=== PATIENT | male | born 1955 | race Caucasian/White ===

== ENCOUNTER 2023-02-24 18:08 | Inpatient (IN) | payer OTHER ==
[~2023-02-24] VITALS: Ht 180.3 cm; Wt 74.3 kg
[2023-02-24 19:07] LABS: BASO # 0.1 10^3/uL (0.0-0.2); BASO % 0.8 % (0.0-1.0); EOS # 0.2 10^3/uL (0.0-0.5); EOS % 1.9 % (0.0-3.0); HEMATOCRIT 42.3 % (42.0-52.0); HEMOGLOBIN 14.6 g/dl (13.5-17.5); LYMPH # 1.1 10^3/uL (1.5-5.0); LYMPH % 9.4 % (24.0-44.0); MEAN CORPUSCULAR HEMOGLOBIN 32.1 pg (27.0-33.0); MEAN CORPUSCULAR HGB CONC 34.5 g/dl (32.0-36.5); MONO # 0.8 10^3/uL (0.0-0.8); MONO % 6.9 % (2.0-8.0); NEUTROPHILS # 8.9 10^3/uL (1.5-8.5); NEUTROPHILS % 80.2 % (36.0-66.0); PLATELET COUNT, AUTOMATED 245 10^3/uL (150-450); RED BLOOD COUNT 4.55 10^6/uL (4.30-6.10); WHITE BLOOD COUNT 11.1 10^3/uL (4.0-10.0)
[2023-02-24 19:22] LABS: ERYTHROCYTE SEDIMENTATION RATE 28 mm/hr (0-20)
[2023-02-24 19:37] LABS: C REACTIVE PROTEIN QUANTITATIV 0.9 MG/DL (<1.0)
[2023-02-24 19:49] LABS: CALCIUM LEVEL 8.4 MG/DL (8.3-10.6); CREATININE FOR GFR 1.71 MG/DL (0.70-1.30); POTASSIUM SERUM 4.1 MMOL/L (3.5-5.1)
[2023-02-24] MEDS ORDERED: HumuLIN R (REGULAR) INSULIN (NovoLIN R) **100U/ML** PER UNIT IV ONE (19:55)
[2023-02-24] MEDS ORDERED: PIPERACILLIN/TAZOBACTAM SOD 4.5 GM in D5W MINI-BAG PLUS 50 ML IV ONE (19:55)
[2023-02-24] MEDS ORDERED: TRUL10IN SC (21:12)
[2023-02-24] MEDS ORDERED: PANT40TA29 PO (21:16)
[2023-02-24] MEDS ORDERED: TRIA37.5 PO (21:16)
[2023-02-24] MEDS ORDERED: JARD1TAB PO (21:16)
[2023-02-24] MEDS ORDERED: CEPH500C PO (21:16)
[2023-02-24] MEDS ORDERED: ATOR40TA75 PO (21:16)
[2023-02-24] MEDS ORDERED: BISO5TAB14 PO (21:16)
[2023-02-24] MEDS ORDERED: METF-838 PO (21:16)
[2023-02-24] MEDS ORDERED: HOME MED LIST COMPLETE! XX SCH (21:20)
[2023-02-24] MEDS ORDERED: VANCOMYCIN HCL 1,000 MG, VIAL MATE ADAPTER 1 EACH in NS 250 ML IV ONE (21:20)
[2023-02-24 21:49] LABS: RSV AMPLIFICATION NEGATIVE (NEGATIVE)
[2023-02-24 23:50] VITALS: BP 127/64
[2023-02-25] MEDS ORDERED: HYDROMORPHONE HCL 0.5 MG/ 0.5 ML SYRINGE IV PRN (00:15)
[2023-02-25] MEDS ORDERED: NS 1,000 ML IV ONE (00:15)
[2023-02-25] MEDS ORDERED: GLUCOSE 4GM CHEW TABLET PO PRN (00:15)
[2023-02-25] MEDS ORDERED: ACETAMINOPHEN TAB 650MG DOSE (2X325MG) PO PRN (00:15)
[2023-02-25] MEDS ORDERED: DEXTROSE 50% 50ML SYRINGE IV PRN (00:15)
[2023-02-25] MEDS ORDERED: GLUCAGON INJ 1MG VIAL SC PRN (00:15)
[2023-02-25] MEDS: LEVEMIR (INSULIN DETEMIR) 1 UNITS/0.01ML SC SCH ×3 (00:54→20:12)
[2023-02-25] MEDS ORDERED: NS 1,000 ML IV SCH (01:00)
[2023-02-25] MEDS: VANCOMYCIN HCL 1,000 MG, VIAL MATE ADAPTER 1 EACH in NS 250 ML IV SCH ×2 (06:01→23:57)
[2023-02-25 06:07] VITALS: BP 141/71
[2023-02-25 06:36] LABS: CHOLESTEROL LEVEL 217 MG/DL (<200); CHOLESTEROL RISK RATIO 6.53 (<5); HDL CHOLESTEROL 33.2 MG/DL (>40); NON-HDL-C 183.8 MG/DL; TRIGLYCERIDES LEVEL 855 MG/DL (<150)
[2023-02-25] MEDS: bisoproloL fumarate 5 MG TAB PO SCH (08:00)
[2023-02-25] MEDS: PANTOPRAZOLE 40MG TAB (PROTONIX) PO SCH (08:00)
[2023-02-25] MEDS: INSULIN LISPRO (NovoLOG) PER UNIT SC SCH ×4 (08:00→20:12)
[2023-02-25 09:47] LABS: BLOOD UREA NITROGEN 35 MG/DL (9-23); CALCIUM LEVEL 8.2 MG/DL (8.3-10.6); CARBON DIOXIDE LEVEL 27 MMOL/L (20-31); CHLORIDE LEVEL 103 MMOL/L (98-107); CREATININE FOR GFR 1.62 MG/DL (0.70-1.30); GLOMERULAR FILTRATION RATE 45.8 (>49); GLUCOSE, FASTING 241 MG/DL (74-106); POTASSIUM SERUM 3.7 MMOL/L (3.5-5.1); SODIUM LEVEL 137 MMOL/L (136-145)
[2023-02-25] MEDS: NICOTINE 7 MG/24 HR TRANSDERMAL TD SCH (12:52)
[2023-02-25 14:00] VITALS: BP 127/64
[2023-02-25] MEDS: DYAZIDE 37.5/25 CAP (TRIAM/HCTZ) PO SCH (14:09)
[2023-02-25 19:47] LABS: HEMOGLOBIN A1c > 14.0 % (4.0-6.0)
[2023-02-25 20:00] VITALS: BP 128/65
[2023-02-25] MEDS: ATORVASTATIN 20 MG TAB PO SCH (20:11)
[2023-02-25] MEDS ORDERED: HEPARIN SOD (PORCINE) 5000UNITS/ML 1ML VIAL/SYRINGE SC SCH (22:00)
[2023-02-26 06:00] VITALS: BP 129/67
[2023-02-26 07:15] LABS: ALBUMIN 2.9 G/DL (3.2-5.2); BILIRUBIN,TOTAL 0.5 MG/DL (0.3-1.2); CREATININE FOR GFR 1.43 MG/DL (0.70-1.30); GLOMERULAR FILTRATION RATE 52.8 (>49); POTASSIUM SERUM 3.8 MMOL/L (3.5-5.1)
[2023-02-26] MEDS: DYAZIDE 37.5/25 CAP (TRIAM/HCTZ) PO SCH (08:32)
[2023-02-26] MEDS: PANTOPRAZOLE 40MG TAB (PROTONIX) PO SCH (08:32)
[2023-02-26] MEDS: LEVEMIR (INSULIN DETEMIR) 1 UNITS/0.01ML SC SCH ×2 (08:32→21:28)
[2023-02-26] MEDS: INSULIN LISPRO (NovoLOG) PER UNIT SC SCH ×4 (08:33→21:29)
[2023-02-26] MEDS: NICOTINE 7 MG/24 HR TRANSDERMAL TD SCH (08:33)
[2023-02-26] MEDS: bisoproloL fumarate 5 MG TAB PO SCH (08:34)
[2023-02-26 08:35] LABS: C REACTIVE PROTEIN QUANTITATIV 1.1 MG/DL (<1.0)
[2023-02-26 08:37] LABS: BASO # 0.1 10^3/uL (0.0-0.2); BASO % 0.9 % (0.0-1.0); EOS # 0.6 10^3/uL (0.0-0.5); EOS % 5.8 % (0.0-3.0); HEMOGLOBIN 14.8 g/dl (13.5-17.5); LYMPH # 1.7 10^3/uL (1.5-5.0); LYMPH % 17.4 % (24.0-44.0); MEAN CORPUSCULAR HEMOGLOBIN 31.9 pg (27.0-33.0); MEAN CORPUSCULAR HGB CONC 33.6 g/dl (32.0-36.5); MEAN CORPUSCULAR VOLUME 94.8 fl (80.0-96.0); MONO # 0.8 10^3/uL (0.0-0.8); MONO % 7.9 % (2.0-8.0); NEUTROPHILS # 6.4 10^3/uL (1.5-8.5); PLATELET COUNT, AUTOMATED 214 10^3/uL (150-450); RED BLOOD COUNT 4.64 10^6/uL (4.30-6.10); WHITE BLOOD COUNT 9.5 10^3/uL (4.0-10.0)
[2023-02-26 08:46] LABS: ERYTHROCYTE SEDIMENTATION RATE 42 mm/hr (0-20)
[2023-02-26] MEDS: ceFAZolin SOD 1 GM in D5W MINI-BAG PLUS 50 ML IV SCH ×2 (10:32→17:06)
[2023-02-26 14:00] VITALS: BP 131/68
[2023-02-26] MEDS: NS 1,000 ML IV SCH (17:06)
[2023-02-26 20:00] VITALS: BP 136/78
[2023-02-26] MEDS: ATORVASTATIN 20 MG TAB PO SCH (21:29)
[2023-02-27] MEDS: ceFAZolin SOD 1 GM in D5W MINI-BAG PLUS 50 ML IV SCH ×3 (01:39→17:44)
[2023-02-27 06:11] LABS: BASO # 0.1 10^3/uL (0.0-0.2); BASO % 1.2 % (0.0-1.0); EOS # 0.6 10^3/uL (0.0-0.5); EOS % 6.8 % (0.0-3.0); HEMATOCRIT 42.9 % (42.0-52.0); HEMOGLOBIN 14.3 g/dl (13.5-17.5); LYMPH # 1.5 10^3/uL (1.5-5.0); LYMPH % 18.3 % (24.0-44.0); MEAN CORPUSCULAR HEMOGLOBIN 31.6 pg (27.0-33.0); MEAN CORPUSCULAR HGB CONC 33.3 g/dl (32.0-36.5); MEAN CORPUSCULAR VOLUME 94.9 fl (80.0-96.0); MONO # 0.8 10^3/uL (0.0-0.8); MONO % 9.5 % (2.0-8.0); NEUTROPHILS # 5.2 10^3/uL (1.5-8.5); NEUTROPHILS % 62.8 % (36.0-66.0); PLATELET COUNT, AUTOMATED 200 10^3/uL (150-450); RED BLOOD COUNT 4.52 10^6/uL (4.30-6.10); WHITE BLOOD COUNT 8.3 10^3/uL (4.0-10.0)
[2023-02-27 06:45] VITALS: BP 132/78
[2023-02-27 06:50] LABS: CALCIUM LEVEL 8.9 MG/DL (8.3-10.6); CREATININE FOR GFR 1.33 MG/DL (0.70-1.30); GLOMERULAR FILTRATION RATE 57.4 (>49)
[2023-02-27] MEDS: DYAZIDE 37.5/25 CAP (TRIAM/HCTZ) PO SCH (08:12)
[2023-02-27] MEDS: PANTOPRAZOLE 40MG TAB (PROTONIX) PO SCH (08:13)
[2023-02-27] MEDS: LEVEMIR (INSULIN DETEMIR) 1 UNITS/0.01ML SC SCH ×2 (08:13→21:54)
[2023-02-27] MEDS: NICOTINE 7 MG/24 HR TRANSDERMAL TD SCH (08:14)
[2023-02-27] MEDS: INSULIN LISPRO (NovoLOG) PER UNIT SC SCH ×4 (08:14→21:00)
[2023-02-27] MEDS: bisoproloL fumarate 5 MG TAB PO SCH (08:15)
[2023-02-27] MEDS ORDERED: LEVEMIR (INSULIN DETEMIR) 1 UNITS/0.01ML SC ONE (12:00)
[2023-02-27] MEDS: ASPIRIN 81MG ENTERIC TABLET PO SCH (13:47)
[2023-02-27 14:00] VITALS: BP 133/77
[2023-02-27] MEDS: NS 1,000 ML IV SCH (14:52)
[2023-02-27 21:00] VITALS: BP 133/77
[2023-02-27] MEDS: ATORVASTATIN 20 MG TAB PO SCH (21:54)
[2023-02-28] MEDS: ceFAZolin SOD 1 GM in D5W MINI-BAG PLUS 50 ML IV SCH ×3 (02:15→17:57)
[2023-02-28 05:25] VITALS: BP 134/74
[2023-02-28 06:00] LABS: BASO # 0.1 10^3/uL (0.0-0.2); BASO % 1.3 % (0.0-1.0); EOS # 0.7 10^3/uL (0.0-0.5); EOS % 7.8 % (0.0-3.0); HEMATOCRIT 42.6 % (42.0-52.0); HEMOGLOBIN 14.3 g/dl (13.5-17.5); LYMPH # 1.8 10^3/uL (1.5-5.0); LYMPH % 20.1 % (24.0-44.0); MEAN CORPUSCULAR HEMOGLOBIN 31.8 pg (27.0-33.0); MEAN CORPUSCULAR HGB CONC 33.6 g/dl (32.0-36.5); MEAN CORPUSCULAR VOLUME 94.9 fl (80.0-96.0); MONO # 0.7 10^3/uL (0.0-0.8); MONO % 7.9 % (2.0-8.0); NEUTROPHILS # 5.4 10^3/uL (1.5-8.5); NEUTROPHILS % 61.3 % (36.0-66.0); PLATELET COUNT, AUTOMATED 208 10^3/uL (150-450); RED BLOOD COUNT 4.49 10^6/uL (4.30-6.10); WHITE BLOOD COUNT 8.8 10^3/uL (4.0-10.0)
[2023-02-28 06:16] LABS: BLOOD UREA NITROGEN 26 MG/DL (9-23); CARBON DIOXIDE LEVEL 27 MMOL/L (20-31); CHLORIDE LEVEL 103 MMOL/L (98-107); CREATININE FOR GFR 1.25 MG/DL (0.70-1.30); GLOMERULAR FILTRATION RATE > 60.0 (>49); GLUCOSE, FASTING 145 MG/DL (74-106); POTASSIUM SERUM 3.8 MMOL/L (3.5-5.1); SODIUM LEVEL 138 MMOL/L (136-145)
[2023-02-28] MEDS: INSULIN LISPRO (NovoLOG) PER UNIT SC SCH ×4 (08:33→21:28)
[2023-02-28] MEDS: LEVEMIR (INSULIN DETEMIR) 1 UNITS/0.01ML SC SCH (08:34)
[2023-02-28] MEDS: ASPIRIN 81MG ENTERIC TABLET PO SCH (08:34)
[2023-02-28] MEDS: PANTOPRAZOLE 40MG TAB (PROTONIX) PO SCH (08:34)
[2023-02-28] MEDS: NS 1,000 ML IV SCH (08:35)
[2023-02-28] MEDS: NICOTINE 7 MG/24 HR TRANSDERMAL TD SCH (08:35)
[2023-02-28] MEDS: bisoproloL fumarate 5 MG TAB PO SCH (09:25)
[2023-02-28 14:14] VITALS: BP 140/68
[2023-02-28] MEDS ORDERED: LEVEMIR (INSULIN DETEMIR) 1 UNITS/0.01ML SC ONE (17:30)
[2023-02-28] MEDS ORDERED: LEVEMIR (INSULIN DETEMIR) 1 UNITS/0.01ML SC SCH (21:00)
[2023-02-28 21:04] VITALS: BP 139/68
[2023-02-28] MEDS: ATORVASTATIN 20 MG TAB PO SCH (21:28)
[2023-03-01] MEDS: ceFAZolin SOD 1 GM in D5W MINI-BAG PLUS 50 ML IV SCH ×3 (01:28→17:58)
[2023-03-01 05:19] VITALS: BP 134/67
[2023-03-01] MEDS: NS 1,000 ML IV SCH ×2 (05:41→21:43)
[2023-03-01 05:56] LABS: BASO # 0.1 10^3/uL (0.0-0.2); BASO % 1.1 % (0.0-1.0); EOS # 0.6 10^3/uL (0.0-0.5); EOS % 6.8 % (0.0-3.0); HEMATOCRIT 41.4 % (42.0-52.0); HEMOGLOBIN 13.7 g/dl (13.5-17.5); LYMPH % 21.9 % (24.0-44.0); MEAN CORPUSCULAR HEMOGLOBIN 31.5 pg (27.0-33.0); MEAN CORPUSCULAR HGB CONC 33.1 g/dl (32.0-36.5); MEAN CORPUSCULAR VOLUME 95.2 fl (80.0-96.0); MONO # 0.7 10^3/uL (0.0-0.8); MONO % 8.1 % (2.0-8.0); NEUTROPHILS # 5.4 10^3/uL (1.5-8.5); NEUTROPHILS % 60.5 % (36.0-66.0); PLATELET COUNT, AUTOMATED 216 10^3/uL (150-450); RED BLOOD COUNT 4.35 10^6/uL (4.30-6.10)
[2023-03-01 06:22] LABS: CALCIUM LEVEL 8.6 MG/DL (8.3-10.6); CREATININE FOR GFR 1.33 MG/DL (0.70-1.30); GLOMERULAR FILTRATION RATE 57.4 (>49); POTASSIUM SERUM 3.8 MMOL/L (3.5-5.1)
[2023-03-01] MEDS ORDERED: LEVEMIR (INSULIN DETEMIR) 1 UNITS/0.01ML SC ONE (07:30)
[2023-03-01] MEDS: ASPIRIN 81MG ENTERIC TABLET PO SCH (08:09)
[2023-03-01] MEDS: PANTOPRAZOLE 40MG TAB (PROTONIX) PO SCH (08:09)
[2023-03-01] MEDS: bisoproloL fumarate 5 MG TAB PO SCH (08:09)
[2023-03-01] MEDS: NICOTINE 7 MG/24 HR TRANSDERMAL TD SCH (08:10)
[2023-03-01] MEDS: INSULIN LISPRO (NovoLOG) PER UNIT SC SCH ×6 (08:16→21:00)
[2023-03-01] MEDS ORDERED: LEVEMIR (INSULIN DETEMIR) 1 UNITS/0.01ML SC SCH ×3 (09:00→21:00)
[2023-03-01 14:17] VITALS: BP 136/66
[2023-03-01 20:15] VITALS: BP 154/77
[2023-03-01] MEDS: ATORVASTATIN 20 MG TAB PO SCH (21:42)
[2023-03-02] VITALS (9 sets, daily range): BP systolic 128–161; BP diastolic 56–69
[2023-03-02] MEDS: ceFAZolin SOD 1 GM in D5W MINI-BAG PLUS 50 ML IV SCH ×3 (02:52→18:00)
[2023-03-02 06:34] LABS: BASO # 0.1 10^3/uL (0.0-0.2); BASO % 0.9 % (0.0-1.0); EOS # 0.7 10^3/uL (0.0-0.5); EOS % 7.6 % (0.0-3.0); HEMATOCRIT 41.2 % (42.0-52.0); HEMOGLOBIN 13.3 g/dl (13.5-17.5); LYMPH # 1.6 10^3/uL (1.5-5.0); LYMPH % 18.4 % (24.0-44.0); MEAN CORPUSCULAR HEMOGLOBIN 31.3 pg (27.0-33.0); MEAN CORPUSCULAR HGB CONC 32.3 g/dl (32.0-36.5); MEAN CORPUSCULAR VOLUME 96.9 fl (80.0-96.0); MONO # 0.7 10^3/uL (0.0-0.8); MONO % 8.4 % (2.0-8.0); NEUTROPHILS # 5.5 10^3/uL (1.5-8.5); NEUTROPHILS % 63.5 % (36.0-66.0); PLATELET COUNT, AUTOMATED 219 10^3/uL (150-450); RED BLOOD COUNT 4.25 10^6/uL (4.30-6.10); WHITE BLOOD COUNT 8.6 10^3/uL (4.0-10.0)
[2023-03-02 06:44] LABS: INR 0.85; PROTHROMBIN TIME 11.8 SECONDS (12.5-14.5)
[2023-03-02 06:45] LABS: PARTIAL THROMBOPLASTIN TIME 28.6 SECONDS (24.8-34.2)
[2023-03-02 07:04] LABS: CALCIUM LEVEL 8.2 MG/DL (8.3-10.6); CREATININE FOR GFR 1.28 MG/DL (0.70-1.30); POTASSIUM SERUM 4.3 MMOL/L (3.5-5.1)
[2023-03-02] MEDS: INSULIN LISPRO (NovoLOG) PER UNIT SC SCH ×8 (07:37→20:23)
[2023-03-02] MEDS ORDERED: fentaNYL 100 MCG/2 ML INJECTION As Ordered ONE ×3 (08:48→11:42)
[2023-03-02] MEDS ORDERED: ISOVUE-300 61% 100ML VIAL As Ordered ONE (08:48)
[2023-03-02] MEDS ORDERED: LIDOCAINE 1% MDV 20ML VIAL As Ordered ONE (08:49)
[2023-03-02] MEDS ORDERED: HEPARIN 1,000UNITS/ML 10ML VIAL (FOR RADIOLOGY & DIALYSIS ONLY) As Ordered ONE (08:49)
[2023-03-02] MEDS ORDERED: MIDAZOLAM INJ 2MG/2ML VIAL As Ordered ONE (08:49)
[2023-03-02] MEDS ORDERED: ceFAZolin 1GM VIAL As Ordered ONE (09:09)
[2023-03-02] MEDS ORDERED: NITROGLYCERIN IN D5W 25MG/250ML (100MCG/ML) As Ordered ONE (11:23)
[2023-03-02] MEDS ORDERED: GLUCAGON INJ 1MG VIAL As Ordered ONE (11:25)
[2023-03-02] MEDS ORDERED: fentaNYL 100 MCG/2 ML INJECTION IV ONE (11:45)
[2023-03-02] MEDS ORDERED: hydrALAZINE 20MG/ML 1ML VIAL As Ordered ONE (11:46)
[2023-03-02] MEDS ORDERED: hydrALAZINE 20MG/ML 1ML VIAL IV ONE (11:49)
[2023-03-02] MEDS ORDERED: CLOPIDOGREL 300 MG TAB (PLAVIX) As Ordered ONE (12:32)
[2023-03-02] MEDS ORDERED: CLOPIDOGREL 300 MG TAB (PLAVIX) PO ONE (13:00)
[2023-03-02] MEDS: ASPIRIN 81MG ENTERIC TABLET PO SCH (13:40)
[2023-03-02] MEDS: NICOTINE 7 MG/24 HR TRANSDERMAL TD SCH (13:40)
[2023-03-02] MEDS: PANTOPRAZOLE 40MG TAB (PROTONIX) PO SCH (13:40)
[2023-03-02] MEDS: bisoproloL fumarate 5 MG TAB PO SCH (13:40)
[2023-03-02] MEDS: NS 1,000 ML IV SCH ×2 (14:03→20:19)
[2023-03-02] MEDS: LEVEMIR (INSULIN DETEMIR) 1 UNITS/0.01ML SC SCH (20:18)
[2023-03-02] MEDS: ATORVASTATIN 20 MG TAB PO SCH (20:19)
[2023-03-03] MEDS: ceFAZolin SOD 1 GM in D5W MINI-BAG PLUS 50 ML IV SCH (01:55)
[2023-03-03 02:00] VITALS: BP 171/70
[2023-03-03 06:00] VITALS: BP 165/72
[2023-03-03 06:21] LABS: BASO # 0.1 10^3/uL (0.0-0.2); BASO % 0.5 % (0.0-1.0); EOS # 0.3 10^3/uL (0.0-0.5); EOS % 1.9 % (0.0-3.0); HEMOGLOBIN 12.6 g/dl (13.5-17.5); LYMPH # 1.4 10^3/uL (1.5-5.0); LYMPH % 10.3 % (24.0-44.0); MEAN CORPUSCULAR HEMOGLOBIN 31.3 pg (27.0-33.0); MEAN CORPUSCULAR HGB CONC 32.3 g/dl (32.0-36.5); MEAN CORPUSCULAR VOLUME 96.8 fl (80.0-96.0); MONO # 1.1 10^3/uL (0.0-0.8); MONO % 8.2 % (2.0-8.0); NEUTROPHILS # 10.8 10^3/uL (1.5-8.5); NEUTROPHILS % 78.1 % (36.0-66.0); PLATELET COUNT, AUTOMATED 215 10^3/uL (150-450); RED BLOOD COUNT 4.03 10^6/uL (4.30-6.10); WHITE BLOOD COUNT 13.8 10^3/uL (4.0-10.0)
[2023-03-03 06:48] LABS: BLOOD UREA NITROGEN 18 MG/DL (9-23); CARBON DIOXIDE LEVEL 24 MMOL/L (20-31); CHLORIDE LEVEL 109 MMOL/L (98-107); CREATININE FOR GFR 1.17 MG/DL (0.70-1.30); GLOMERULAR FILTRATION RATE > 60.0 (>49); GLUCOSE, FASTING 167 MG/DL (74-106); SODIUM LEVEL 139 MMOL/L (136-145)
[2023-03-03] MEDS: LEVEMIR (INSULIN DETEMIR) 1 UNITS/0.01ML SC SCH (08:13)
[2023-03-03] MEDS: INSULIN LISPRO (NovoLOG) PER UNIT SC SCH ×4 (08:14→12:17)
[2023-03-03] MEDS: NICOTINE 7 MG/24 HR TRANSDERMAL TD SCH (08:14)
[2023-03-03 08:15] VITALS: BP 170/70
[2023-03-03] MEDS: bisoproloL fumarate 5 MG TAB PO SCH (08:15)
[2023-03-03] MEDS: ASPIRIN 81MG ENTERIC TABLET PO SCH (08:15)
[2023-03-03] MEDS: PANTOPRAZOLE 40MG TAB (PROTONIX) PO SCH (08:15)
[2023-03-03] MEDS ORDERED: CLOPIDOGREL 75 MG TAB PO SCH (09:00)
[2023-03-03 10:00] VITALS: BP 143/64
[2023-03-03] MEDS ORDERED: CLOP75TA2 PO (11:21)
[2023-03-03] MEDS ORDERED: ASPI81TAEC PO (11:21)
[2023-03-03] MEDS ORDERED: ALCOPAD25 TOP (11:21)
[2023-03-03] MEDS ORDERED: PEN1MIS23 SC (11:21)
[2023-03-03] MEDS ORDERED: INSU100I48 SQ (11:21)
[2023-03-03] MEDS ORDERED: ATOR80TA59 PO (11:21)
[2023-03-03] MEDS ORDERED: DOXY-444 PO (11:22)
[2023-03-03] MEDS ORDERED: CEFD300C PO (11:22)
[2023-03-03 14:00] VITALS: BP 148/64
== END 2023-03-03 16:51 | disposition home health service (06) | DRG 181 ==
LOC: M ED 18:08 → M ED INP 22:20 → M MSPAV 23:34
PROVIDERS: ADMIT Internal Medicine; ATTEND Internal Medicine
PROC: 0JBR3ZZ Excision of Left Foot Subcutaneous Tissue and Fascia, Percutaneous Approach (ICD-10-PCS; 2023-02-26)
PROC: 047L3ZZ Dilation of Left Femoral Artery, Percutaneous Approach (ICD-10-PCS; 2023-03-02)
PROC: 04FL3ZZ Fragmentation of Left Femoral Artery, Percutaneous Approach (ICD-10-PCS; 2023-03-02)
PROC: X27J395 Dilation of Left Femoral Artery with Two Sustained Release Drug-eluting Intraluminal Devices, Percutaneous Approach, New Technology Group 5 (ICD-10-PCS; principal; 2023-03-02 09:00)
DX: E11.51 Type 2 diabetes mellitus with diabetic peripheral angiopathy without gangrene (principal); N17.9 Acute kidney failure, unspecified; Q60.0 Renal agenesis, unilateral; E11.22 Type 2 diabetes mellitus with diabetic chronic kidney disease; F03.90 Unspecified dementia, unspecified severity, without behavioral disturbance, psychotic disturbance, mood disturbance, and anxiety; E11.40 Type 2 diabetes mellitus with diabetic neuropathy, unspecified; E11.621 Type 2 diabetes mellitus with foot ulcer; E11.628 Type 2 diabetes mellitus with other skin complications; D64.9 Anemia, unspecified; E78.00 Pure hypercholesterolemia, unspecified; E78.5 Hyperlipidemia, unspecified; F17.210 Nicotine dependence, cigarettes, uncomplicated; I12.9 Hypertensive chronic kidney disease with stage 1 through stage 4 chronic kidney disease, or unspecified chronic kidney disease; I70.201 Unspecified atherosclerosis of native arteries of extremities, right leg; I70.345 Atherosclerosis of unspecified type of bypass graft(s) of the left leg with ulceration of other part of foot; K21.9 Gastro-esophageal reflux disease without esophagitis; N18.30 Chronic kidney disease, stage 3 unspecified; Z79.82 Long term (current) use of aspirin; Z79.899 Other long term (current) drug therapy; Z79.4 Long term (current) use of insulin

== ENCOUNTER → 2023-04-17 | Outpatient (CLI) | payer MEDICARE, OTHER ==
[~2023-04-17] MED LIST: ALCOPAD25 TOP; ASPI81TAEC PO; ATOR40TA75 PO; ATOR80TA59 PO; BISO5TAB14 PO; CEFD300C PO; CEPH500C PO; CLOP75TA2 PO; DOXY-444 PO; INSU100I48 SQ; JARD1TAB PO; METF-838 PO; PANT40TA29 PO; PEN1MIS23 SC; TRIA37.5 PO; TRUL10IN SC
== END ==
LOC: M RAD 12:22
PROVIDERS: ATTEND Surgery Vascular Surgery
DX: I73.9 Peripheral vascular disease, unspecified (principal); Z98.62 Peripheral vascular angioplasty status

== ENCOUNTER → 2023-06-19 | Outpatient (REF) | payer MEDICARE, OTHER ==
[~2023-06-19] MED LIST changes: +AMLO10TA PO; +BACT800T5 PO
[2023-06-19 17:48] LABS: APPEARANCE, URINE CLOUDY (CLEAR); BACTERIA, URINE AUTO 1+ (NEGATIVE); BILIRUBIN, URINE AUTO NEGATIVE (NEGATIVE); BLOOD, URINE BLOOD 2+ (NEGATIVE); COLOR, URINE YELLOW (YELLOW); GLUCOSE, URINE (UA) AUTO 3+ mg/dL (NEGATIVE); KETONE, URINE AUTO NEGATIVE (NEGATIVE); LEUKOCYTE ESTERASE, URINE AUTO 3+ (NEGATIVE); NITRITE, URINE AUTO POSITIVE (NEGATIVE); PROTEIN, URINE AUTO 1+ mg/dL (NEGATIVE); RBC, URINE AUTO 9 /HPF (0-3); SPECIFIC GRAVITY URINE AUTO 1.013 (1.002-1.035); SQUAMOUS EPITHELIAL CELL UR AU 0 /HPF (0-6); UROBILINOGEN, URINE AUTO 0.2 mg/dL (0.0-2.0); WBC, URINE AUTO TNTC /HPF (0-3)
== END ==
LOC: M SMT 16:50
PROVIDERS: ATTEND Physician Assistant
DX: R31.0 Gross hematuria (principal)

== ENCOUNTER 2023-06-21 15:39 | Emergency (ER) | payer MEDICARE, OTHER ==
[~2023-06-21] VITALS: Ht 180.3 cm; Wt 80.9 kg
[~2023-06-21 15:39] MED LIST changes: -AMLO10TA PO; -BACT800T5 PO
[2023-06-21] MEDS ORDERED: AMLO10TA PO (15:51)
[2023-06-21 18:15] LABS: BASO # 0.1 10^3/uL (0.0-0.2); BASO % 1.1 % (0.0-1.0); EOS # 0.4 10^3/uL (0.0-0.5); EOS % 5.1 % (0.0-3.0); HEMOGLOBIN 12.3 g/dl (13.5-17.5); LYMPH # 1.3 10^3/uL (1.5-5.0); LYMPH % 16.1 % (24.0-44.0); MEAN CORPUSCULAR HEMOGLOBIN 28.1 pg (27.0-33.0); MEAN CORPUSCULAR HGB CONC 32.4 g/dl (32.0-36.5); MONO # 0.7 10^3/uL (0.0-0.8); MONO % 8.8 % (2.0-8.0); NEUTROPHILS # 5.7 10^3/uL (1.5-8.5); NEUTROPHILS % 68.3 % (36.0-66.0); PLATELET COUNT, AUTOMATED 337 10^3/uL (150-450); RED BLOOD COUNT 4.37 10^6/uL (4.30-6.10); WHITE BLOOD COUNT 8.3 10^3/uL (4.0-10.0)
[2023-06-21 18:18] LABS: APPEARANCE, URINE CLEAR (CLEAR); BACTERIA, URINE AUTO 1+ (NEGATIVE); BILIRUBIN, URINE AUTO NEGATIVE (NEGATIVE); BLOOD, URINE BLOOD 2+ (NEGATIVE); COLOR, URINE STRAW (YELLOW); GLUCOSE, URINE (UA) AUTO 3+ mg/dL (NEGATIVE); KETONE, URINE AUTO NEGATIVE (NEGATIVE); LEUKOCYTE ESTERASE, URINE AUTO 3+ (NEGATIVE); MUCUS, URINE SMALL (NEGATIVE); NITRITE, URINE AUTO NEGATIVE (NEGATIVE); PROTEIN, URINE AUTO 2+ mg/dL (NEGATIVE); RBC, URINE AUTO 63 /HPF (0-3); SPECIFIC GRAVITY URINE AUTO 1.009 (1.002-1.035); SQUAMOUS EPITHELIAL CELL UR AU 0 /HPF (0-6); UROBILINOGEN, URINE AUTO 0.2 mg/dL (0.0-2.0); WBC, URINE AUTO 85 /HPF (0-3)
[2023-06-21] MEDS ORDERED: ISOVUE-370 76% 100ML VIAL As Ordered ONE (18:38)
[2023-06-21] MEDS ORDERED: BACT800T5 PO (20:17)
[2023-06-21] MEDS ORDERED: CEFEPIME HCL 1 GM in D5W MINI-BAG PLUS 50 ML IV ONE (20:20)
[2023-06-21 21:27] VITALS: BP 163/87; TEMP 98.2; O2SAT 97
[2023-06-24] MEDS ORDERED: PROA1AER2 INH (11:36)
[2023-06-24] MEDS ORDERED: JARD1TAB PO (11:36)
[2023-06-24] MEDS ORDERED: BACTDSTA PO (11:36)
[2023-06-24] MEDS ORDERED: METF-838 PO (11:36)
[2023-06-24] MEDS ORDERED: IRBE150T7 PO (11:36)
== END 2023-06-21 21:29 | disposition home or self-care (01) ==
LOC: M ED 15:39
DX: N10 Acute pyelonephritis (principal); D49.4 Neoplasm of unspecified behavior of bladder; E11.9 Type 2 diabetes mellitus without complications; I10 Essential (primary) hypertension; E78.5 Hyperlipidemia, unspecified; J44.9 Chronic obstructive pulmonary disease, unspecified; Z79.82 Long term (current) use of aspirin; Z79.899 Other long term (current) drug therapy
CPT/HCPCS: 74177; 80047; 81001; 85025; 96365; 99284; J0692; Q9967

== ENCOUNTER 2023-06-23 07:09 | Emergency (ER) | payer MEDICARE ==
[~2023-06-23] VITALS: Ht 180.3 cm; Wt 81.7 kg
[~2023-06-23 07:09] MED LIST changes: +AMLO10TA PO; +BACT800T5 PO
[2023-06-23] MEDS ORDERED: INSU100I48 SQ (07:24)
[2023-06-23 09:16] VITALS: BP 160/78; TEMP 97.8; O2SAT 98
[2023-06-24] MEDS ORDERED: JARD1TAB PO (11:36)
[2023-06-24] MEDS ORDERED: PROA1AER2 INH (11:36)
[2023-06-24] MEDS ORDERED: METF-838 PO (11:36)
[2023-06-24] MEDS ORDERED: BACTDSTA PO (11:36)
[2023-06-24] MEDS ORDERED: IRBE150T7 PO (11:36)
== END 2023-06-23 09:16 | disposition home or self-care (01) ==
LOC: M ED 07:09
DX: T83.022A Displacement of nephrostomy catheter, initial encounter (principal); E11.9 Type 2 diabetes mellitus without complications; I10 Essential (primary) hypertension; F17.200 Nicotine dependence, unspecified, uncomplicated; Z86.79 Personal history of other diseases of the circulatory system; Z79.52 Long term (current) use of systemic steroids; Z79.82 Long term (current) use of aspirin; Z79.02 Long term (current) use of antithrombotics/antiplatelets; Z79.899 Other long term (current) drug therapy

== ENCOUNTER 2023-07-17 11:51 | Day surgery (SDC) | payer MEDICARE, OTHER ==
[~2023-07-17] VITALS: Ht 180.3 cm; Wt 82.6 kg
[~2023-07-17 11:51] MED LIST changes: +BACTDSTA PO; +HYDROMORPHONE HCL 0.5 MG/ 0.5 ML SYRINGE IV PRN; +IRBE150T7 PO; +LIDOCAINE 2% 100MG/5ML SDV (FOR ANES.) As Ordered ONE; +LR 1,000 ML IV SCH; +MEPERIDINE 25 MG/ML 1ML VIAL IV PRN; +MIDAZOLAM INJ 2MG/2ML VIAL As Ordered ONE; +ONDANSETRON 4MG 2ML VIAL As Ordered ONE; +ONDANSETRON 4MG 2ML VIAL IV PRN; +PROA1AER2 INH; +ceFAZolin SOD 2 GM in IV 1 EA IV ONE; +fentaNYL 100 MCG/2 ML INJECTION As Ordered ONE; +fentaNYL 100 MCG/2 ML INJECTION IV PRN; +oxyCODONE 5MG TAB PO PRN; +propofoL 200 MG/20 ML VIAL As Ordered ONE
[2023-07-17] MEDS ORDERED: LR 1,000 ML IV SCH ×2 (12:25→15:35)
[2023-07-17] MEDS ORDERED: INSULIN LISPRO (NovoLOG) PER UNIT SC PRN ×2 (12:25→15:35)
[2023-07-17] MEDS ORDERED: GLIP5TAB8 PO (12:26)
[2023-07-17] MEDS ORDERED: CEFEPIME HCL 1 GM in D5W MINI-BAG PLUS 50 ML IV ONE (13:00)
[2023-07-17] MEDS ORDERED: ROCURONIUM BROMIDE 50MG/5ML VIAL As Ordered ONE (13:56)
[2023-07-17] MEDS ORDERED: ISOVUE-300 61% 100ML VIAL As Ordered ONE (14:07)
[2023-07-17] MEDS ORDERED: METOCLOPRAMIDE INJ 10MG/2ML VIAL As Ordered ONE (14:39)
[2023-07-17] MEDS ORDERED: SUGAMMADEX SODIUM 500 MG/5 ML VIAL (BRIDION) As Ordered ONE (15:20)
[2023-07-17] MEDS ORDERED: ACETAMINOPHEN 1000MG 100ML IV BAG As Ordered ONE (15:20)
[2023-07-17] MEDS ORDERED: PHENYLephrine 500MCG 5ML (100MCG/ML) SYRINGE As Ordered ONE (15:24)
[2023-07-17] MEDS ORDERED: ONDANSETRON 4MG 2ML VIAL IV PRN (15:35)
[2023-07-17] MEDS ORDERED: fentaNYL 100 MCG/2 ML INJECTION IV PRN (15:35)
[2023-07-17] MEDS ORDERED: oxyCODONE 5MG TAB PO PRN (15:35)
[2023-07-17] MEDS ORDERED: BACTDSTA PO (16:13)
[2023-07-17 17:04] VITALS: BP 138/79; TEMP 97.4; O2SAT 97
== END 2023-07-17 17:35 | disposition home or self-care (01) ==
LOC: M SDC 11:51
PROVIDERS: ATTEND Urology
DX: N13.30 Unspecified hydronephrosis (principal); I10 Essential (primary) hypertension; E78.5 Hyperlipidemia, unspecified; I73.9 Peripheral vascular disease, unspecified; E11.9 Type 2 diabetes mellitus without complications; J44.9 Chronic obstructive pulmonary disease, unspecified; Z79.84 Long term (current) use of oral hypoglycemic drugs; K21.9 Gastro-esophageal reflux disease without esophagitis; Z79.02 Long term (current) use of antithrombotics/antiplatelets; Z79.82 Long term (current) use of aspirin; Z79.899 Other long term (current) drug therapy
CPT/HCPCS: 50389; 52332; 76000; C1769; C2617; J0131; J1815; J2250; J2371; J2405; J2765; J3010; Q9967

== ENCOUNTER 2023-07-21 19:33 | Emergency (ER) | payer MEDICARE, OTHER ==
[~2023-07-21] VITALS: Ht 180.3 cm; Wt 89.3 kg
[~2023-07-21 19:33] MED LIST changes: +GLIP5TAB8 PO; -HYDROMORPHONE HCL 0.5 MG/ 0.5 ML SYRINGE IV PRN; -LIDOCAINE 2% 100MG/5ML SDV (FOR ANES.) As Ordered ONE; -LR 1,000 ML IV SCH; -MEPERIDINE 25 MG/ML 1ML VIAL IV PRN; -MIDAZOLAM INJ 2MG/2ML VIAL As Ordered ONE; -ONDANSETRON 4MG 2ML VIAL As Ordered ONE; -ONDANSETRON 4MG 2ML VIAL IV PRN; -ceFAZolin SOD 2 GM in IV 1 EA IV ONE; -fentaNYL 100 MCG/2 ML INJECTION As Ordered ONE; -fentaNYL 100 MCG/2 ML INJECTION IV PRN; -oxyCODONE 5MG TAB PO PRN; -propofoL 200 MG/20 ML VIAL As Ordered ONE
[2023-07-21 19:57] VITALS: TEMP 98.6
[2023-07-21] MEDS ORDERED: DICL20GE TP (22:45)
[2023-07-21 23:06] VITALS: BP 165/78; O2SAT 98
== END 2023-07-21 23:08 | disposition home or self-care (01) ==
LOC: M ED 19:33
DX: R22.32 Localized swelling, mass and lump, left upper limb (principal); S40.022A Contusion of left upper arm, initial encounter; E11.9 Type 2 diabetes mellitus without complications; I10 Essential (primary) hypertension; E78.5 Hyperlipidemia, unspecified; K21.9 Gastro-esophageal reflux disease without esophagitis; J44.9 Chronic obstructive pulmonary disease, unspecified; Z79.01 Long term (current) use of anticoagulants; Z79.52 Long term (current) use of systemic steroids; Z79.02 Long term (current) use of antithrombotics/antiplatelets; Z79.899 Other long term (current) drug therapy

== ENCOUNTER → 2023-09-09 | Outpatient (CLI) | payer MEDICARE, OTHER ==
[~2023-09-09] MED LIST changes: +DICL20GE TP; +GLIP5TAB17 PO; -GLIP5TAB8 PO; +PEN-61 SC; -PEN1MIS23 SC
== END ==
LOC: M RAD 13:59
PROVIDERS: ATTEND Urology
DX: N13.30 Unspecified hydronephrosis (principal); Q60.0 Renal agenesis, unilateral; N28.1 Cyst of kidney, acquired

== ENCOUNTER → 2024-03-28 | Outpatient (CLI) | payer MEDICARE, MEDICAID ==
[~2024-03-28] MED LIST changes: +DOXY-440 PO; -DOXY-444 PO; +IRBE150T27 PO; -IRBE150T7 PO
== END ==
LOC: M RAD 10:03
PROVIDERS: ATTEND Physician Assistant
DX: N28.1 Cyst of kidney, acquired (principal); R93.421 Abnormal radiologic findings on diagnostic imaging of right kidney

== ENCOUNTER → 2024-08-23 | Outpatient (REF) | payer MEDICARE | LOC: M SMT 10:03 | PROVIDERS: ATTEND Physician Assistant | DX: N50.89 Other specified disorders of the male genital organs (principal); Z53.9 Procedure and treatment not carried out, unspecified reason ==

== ENCOUNTER → 2024-09-21 | Day surgery (SDC) | payer MEDICARE, MEDICAID ==
[~2024-09-21] VITALS: Ht 180.3 cm; Wt 87.5 kg
[~2024-09-21] MED LIST changes: +AMLO1TAB25 PO; +ASPI-226 PO; +BACITRACIN OINTMENT 30GM TUBE As Ordered ONE; +BISO10TA14 PO; +FARX1TAB3 PO; +FARX1TAB5 PO; +HYDR-161 PO; +INCR1INH INH; +LIDOCAINE 1% SDV 30ML VIAL As Ordered ONE; +LIDOCAINE 2% 100MG/5ML SDV (FOR ANES.) As Ordered ONE; +LORA-1041 PO; +ONDANSETRON 4MG 2ML VIAL As Ordered ONE; +SEMA0.257 SC; +ceFAZolin SOD 2 GM in IV 1 EA IV ONE; +dexmedeTOMIDine (4MCG/ML)200MCG/50ML BTL (PRECEDEX) As Ordered ONE; +fentaNYL 100 MCG/2 ML INJECTION As Ordered ONE; +propofoL 200 MG/20 ML VIAL As Ordered ONE
== END | disposition home or self-care (01) ==
LOC: M SDC 09:48
PROVIDERS: ATTEND Urology
DX: N43.3 Hydrocele, unspecified (principal); Z53.09 Procedure and treatment not carried out because of other contraindication; Z79.02 Long term (current) use of antithrombotics/antiplatelets

== ENCOUNTER 2024-09-28 05:58 | Day surgery (SDC) | payer MEDICARE, MEDICAID ==
[~2024-09-28] VITALS: Ht 180.3 cm; Wt 85.7 kg
[~2024-09-28 05:58] MED LIST changes: -BACITRACIN OINTMENT 30GM TUBE As Ordered ONE; -LIDOCAINE 1% SDV 30ML VIAL As Ordered ONE; -LIDOCAINE 2% 100MG/5ML SDV (FOR ANES.) As Ordered ONE; -ONDANSETRON 4MG 2ML VIAL As Ordered ONE; -ceFAZolin SOD 2 GM in IV 1 EA IV ONE; -dexmedeTOMIDine (4MCG/ML)200MCG/50ML BTL (PRECEDEX) As Ordered ONE; -fentaNYL 100 MCG/2 ML INJECTION As Ordered ONE; -propofoL 200 MG/20 ML VIAL As Ordered ONE
[2024-09-28] MEDS ORDERED: NS 1,000 ML IV SCH (06:40)
[2024-09-28] MEDS ORDERED: propofoL 200 MG/20 ML VIAL As Ordered ONE (06:51)
[2024-09-28] MEDS ORDERED: ONDANSETRON 4MG 2ML VIAL As Ordered ONE (06:51)
[2024-09-28] MEDS ORDERED: LIDOCAINE 2% 100MG/5ML SDV (FOR ANES.) As Ordered ONE (06:51)
[2024-09-28] MEDS ORDERED: MIDAZOLAM INJ 2MG/2ML VIAL As Ordered ONE (06:54)
[2024-09-28] MEDS ORDERED: fentaNYL 100 MCG/2 ML INJECTION As Ordered ONE (06:54)
[2024-09-28] MEDS: ceFAZolin SOD 2 GM in IV 1 EA IV ONE (07:30)
[2024-09-28] MEDS ORDERED: ACETAMINOPHEN 1000MG 100ML IV BAG As Ordered ONE (07:46)
[2024-09-28] MEDS ORDERED: ePHEDrine SULFATE 25 MG/5 ML(5MG/ML) SYRINGE As Ordered ONE (08:19)
[2024-09-28] MEDS: BACITRACIN OINTMENT 30GM TUBE As Ordered ONE (08:25)
[2024-09-28] MEDS ORDERED: NS 250 ML IV SCH (08:25)
[2024-09-28] MEDS ORDERED: HYDROMORPHONE HCL 0.5 MG/ 0.5 ML SYRINGE IV PRN (08:25)
[2024-09-28] MEDS ORDERED: ONDANSETRON 4MG 2ML VIAL IV PRN (08:25)
[2024-09-28] MEDS ORDERED: oxyCODONE 5MG TAB PO PRN (08:25)
[2024-09-28] MEDS ORDERED: fentaNYL 100 MCG/2 ML INJECTION IV PRN (08:25)
[2024-09-28] MEDS: LIDOCAINE 1% SDV 30ML VIAL As Ordered ONE (08:39)
[2024-09-28] MEDS ORDERED: CEPH500C PO (09:03)
[2024-09-28] MEDS ORDERED: OXYC1TAB23 PO (09:03)
[2024-09-28 09:55] VITALS: BP 184/84; TEMP 96; O2SAT 95
== END 2024-09-28 10:01 | disposition home or self-care (01) ==
LOC: M SDC 05:58
PROVIDERS: ATTEND Urology
DX: N43.3 Hydrocele, unspecified (principal); I10 Essential (primary) hypertension; E78.5 Hyperlipidemia, unspecified; I73.9 Peripheral vascular disease, unspecified; E11.9 Type 2 diabetes mellitus without complications; K21.9 Gastro-esophageal reflux disease without esophagitis; J44.9 Chronic obstructive pulmonary disease, unspecified; Z79.82 Long term (current) use of aspirin; Z79.02 Long term (current) use of antithrombotics/antiplatelets; Z79.899 Other long term (current) drug therapy; Z79.51 Long term (current) use of inhaled steroids; Z88.8 Allergy status to other drugs, medicaments and biological substances
CPT/HCPCS: 55040; 88302; J0131; J0665; J0690; J1100; J2250; J2405; J3010